=== PATIENT | male | born 1970 | race Caucasian/White ===

== ENCOUNTER 2018-12-22 00:25 | Emergency (ER) | payer OTHER ==
[~2018-12-22] VITALS: Ht 180.3 cm; Wt 99.8 kg
[2018-12-22 01:08] LABS: ABSOLUTE EOSINOPHILS 0.2 thou/uL (0.0-0.7); ABSOLUTE LYMPHOCYTES 1.9 thou/uL (0.8-5.3); ABSOLUTE MONOCYTES 0.6 thou/uL (0.0-1.2); ABSOLUTE NEUTROPHILS 3.3 thou/uL (1.6-8.1); BASOPHILS 0.6 %; EOSINOPHILS 3.8 %; HEMATOCRIT 41.8 % (42.0-52.0); HEMOGLOBIN 14.2 gm/dL (14.0-18.0); LYMPHOCYTES 31.4 %; MCH 29.7 pg (26.0-34.0); MCV 87.5 fL (80.0-100.0); MONOCYTES 9.1 %; MPV 9.8 fl. (7.2-11.1); NUCLEATED RBCS 0 /100WBC; PLATELET COUNT* 152 thou/uL (150-400); POLYS 55.1 %; RBC 4.78 mil/uL (4.50-6.00); RDW-CV 12.9 % (10.5-14.5); WBC 6.1 thou/uL (4.0-11.0)
[2018-12-22 01:17] LABS: ALBUMIN 3.8 g/dL (3.4-5.0); CALCIUM 9.1 mg/dL (8.5-10.1); CREATININE 1.3 mg/dL (0.6-1.3); POTASSIUM 3.7 mmol/L (3.5-5.1); TOTAL BILIRUBIN 0.3 mg/dL (<0.1-1.0); TOTAL PROTEIN 7.7 g/dL (6.4-8.2)
[2018-12-22 02:00] VITALS: BP 152/96
--- NOTE | 2018-12-22 10:40 | EKG ---
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1970 Requested By: Christopher Boo Order Number: [id number] MD: Elgin Antony Measurements Intervals [place] Rate: 84 P: 35 NM: 140 QRS: 9 QRSD: 93 T: 34 QT: 367 QTc: 434 Interpretive Statements Sinus rhythm Abnormal R-wave progression, early transition Baseline wander in lead(s) I,aVL No previous ECG available for comparison Electronically Signed On 12-22-2018 10:40:44 CDT by Elgin Antony [email or web address] <ELECTRONICALLY SIGNED> By: Elgin Antony MD, [facility] 12/22/18 1040 0034 003 Elgin Antony MD, FACC /EPI
== END 2018-12-22 02:02 | disposition home or self-care (01) ==
LOC: M.ERS 00:25
PROVIDERS: Family Medicine
DX: I10 Essential (primary) hypertension (principal)